=== PATIENT | male | born 1975 | race Caucasian/White ===

== ENCOUNTER → 2016-10-29 | Outpatient (CLI) | payer OTHER ==
[2016-10-29 17:01] LABS: Anion Gap 9 mmol/L; Blood Urea Nitrogen 23 mg/dL (9-20); Carbon Dioxide 30 mmol/L (22-30); Chloride 103 mmol/L (98-107); Non-African American GFR(MDRD) >60 (>60 ml/min/1.73 sqM); Sodium 142 mmol/L (137-145)
--- NOTE | 2016-10-29 20:15 | CT ---
EXAMINATION TYPE: CT angio chest DATE OF EXAM: 10/29/2016 8:01 PM COMPARISON: NONE HISTORY: ENLARGED AORTA AND HX OF AORTIC VALVE REPLACEMENT IN '09. CT DLP: 896.5 mGycm Automated exposure control for dose reduction was used. CONTRAST: CTA scan of the thorax is performed with IV Contrast, patient injected with 100 mL of Omnipaque 350, pulmonary embolism protocol. . FINDINGS: There are 3-D post processed images. The lungs are clear of infiltrate. There is no pleural effusion. There is no sign of a pulmonary mass . There is small linear density at the lung bases consistent with subsegmental atelectasis. There is no pericardial effusion. Heart size is normal. Thoracic aorta has normal size and contour. There is n o sign of aneurysm or dissection. I see no filling defects in the pulmonary arteries. The thoracic ao rta measures maximum 2.8 cm in diameter. I see no bony destructive process. There is no mediastinal adenopathy. There are no hilar masses. IMPRESSION: NEGATIVE CT ANGIOGRAM OF THE CHEST. NO EVIDENCE OF AORTIC ANEURYSM OR DISSECTION. NO EVIDENCE OF PULM ONARY EMBOLISM.
== END ==
LOC: RADCTMAIN 16:29
PROVIDERS: ATTEND Internal Medicine Cardiovascular Disease
DX: I35.1 Nonrheumatic aortic (valve) insufficiency (principal)
CPT/HCPCS: 80051; 82565; 84520; 71275; 36415; Q9967

== ENCOUNTER 2017-02-26 21:53 | Emergency (ER) | payer OTHER ==
[2017-02-26 22:08] VITALS: RESP 16
[2017-02-26] MEDS ORDERED: SODIUM CHLORIDE 0.9% 1,000 ML IV STA (22:12)
[2017-02-26] MEDS ORDERED: KETOROLAC 30 MG/ML 1 ML VIAL IVP STA (22:12)
[2017-02-26 22:45] LABS: Basophils # (A) 0.1 k/uL (0-0.2); Basophils % (A) 1 %; CH 29.2; CHCM 35.2; Eosinophils # (A) 0.2 k/uL (0-0.7); Eosinophils % (A) 3 %; HCT 45.4 % (39.0-53.0); HDW 2.81; HGB 15.6 gm/dL (13.0-17.5); Luc # (Auto) 0.07; Luc % (Auto) 1; Lymphocytes # (A) 2.2 k/uL (1.0-4.8); Lymphocytes % (A) 26 %; MCH 28.7 pg (25.0-35.0); MCHC 34.4 g/dL (31.0-37.0); MCV 83.3 fL (80.0-100.0); Mean Platelet Volume 7.2; Monocytes # (A) 0.3 k/uL (0-1.0); Monocytes % (A) 4 %; Neutrophils # (A) 5.4 k/uL (1.3-7.7); Neutrophils % (A) 66 %; RBC 5.45 m/uL (4.30-5.90); RDW 13.8 % (11.5-15.5); WBC 8.2 k/uL (3.8-10.6); WBC (Perox) 7.56
[2017-02-26 22:55] LABS: Partial Thromboplastin Time 26.1 sec (22.0-30.0); Prothrombin Time 10.2 sec (9.0-12.0)
[2017-02-26 23:05] LABS: ALT 44 U/L (21-72); AST 30 U/L (17-59); Alkaline Phosphatase 93 U/L (38-126); Anion Gap 8 mmol/L; Blood Urea Nitrogen 19 mg/dL (9-20); Calcium 9.1 mg/dL (8.4-10.2); Carbon Dioxide 24 mmol/L (22-30); Chloride 107 mmol/L (98-107); Glucose 88 mg/dL (74-99); Magnesium 2.2 mg/dL (1.6-2.3); Non-African American GFR(MDRD) >60 (>60 ml/min/1.73 sqM); Potassium 3.9 mmol/L (3.5-5.1); Sodium 139 mmol/L (137-145); Total Bilirubin 0.5 mg/dL (0.2-1.3); Total Protein 7.3 g/dL (6.3-8.2)
[2017-02-26 23:07] LABS: Creatine Kinase 90 U/L (55-170)
[2017-02-26 23:21] LABS: Creatine Kinase MB 0.5 ng/mL (0.0-2.4); Troponin I <0.012 ng/mL (0.000-0.034)
--- NOTE | 2017-02-26 23:24 | XR ---
EXAM: XR Right Forearm, 2 Views CLINICAL HISTORY: Reason: Pain TECHNIQUE: Frontal and lateral views of the right forearm. COMPARISON: None. FINDINGS: Bones/joints: Patient is status post ORIF of the mid/distal right ulnar and radial diaphysis. No acute fracture. No dislocation. Degenerative changes involving the olecranon are seen. Soft tissues: Subtle soft tissue swelling may be present overlying these findings. IMPRESSION: Noted radiographic evidence of an acute fracture. Patient is status post ORIF of the radial and ulnar bones, as discussed above.
--- NOTE | 2017-02-26 23:27 | XR ---
EXAM: XR Chest, 2 Views CLINICAL HISTORY: Reason: Chest Pain TECHNIQUE: Frontal and lateral views of the chest. COMPARISON: 12/16/2014 FINDINGS: Lungs: There is suspected mild hazy prominence of the central pulmonary vasculature, not appreciated on the prior study, which may represent mild pulmonary edema. No evidence of consolidation. Pleural space: Unremarkable. No pneumothorax. Heart: Unremarkable. No cardiomegaly. Valvular prosthesis is in place and unchanged from prior study. Mediastinum: Stable. Bones/joints: Previous midline sternotomy is again seen. IMPRESSION: Mild hazy prominence of the central pulmonary vasculature is suspected, not appreciated on the prior study, which may represent mild pulmonary edema.
--- NOTE | 2017-02-26 23:31 | XR ---
EXAM: XR Left Shoulder Complete, 2 or More Views CLINICAL HISTORY: Left shoulder pain 5 days TECHNIQUE: Two or more views of the left shoulder. COMPARISON: None FINDINGS: Bones/joints: Mild narrowing of the glenohumeral and acromioclavicular joints with associated bony productive changes No acute fracture. No dislocation. Soft tissues: Unremarkable. IMPRESSION: Mild osteoarthropathy. No radiographic evidence of acute osseous injury.
--- NOTE | 2017-02-26 23:54 | ED ---
General Adult HPI - General Chief complaint: Extremity Injury, Upper Stated complaint: arm pain Time Seen by Provider: 02/26/17 22:04 Source: patient, RN notes reviewed, old records reviewed Mode of arrival: ambulatory Limitations: no limitations - History of Present Illness Initial comments: 41-year-old male presents emergency Department chief complaint of just feeling generally ill for the past week. Patient reports he is still more fatigued. Patient reports he is has a history of a heart valve replacement. He does state that he is also take Coumadin but he has been subtherapeutic and often forgets to take it. Patient reports that he also has had some right shoulder and left forearm pain. Patient reports is working on the [employer] frequently and thinks that he may have just aggravated the muscles. Patient denies any recent fever or chills, chest pain, shortness of breath, headache, neck pain or any other symptoms. - Related Data Home Medications Medication Instructions Recorded Confirmed Warfarin [Coumadin] 5 mg PO DAILY 02/26/17 02/26/17 Previous Rx's Medication Instructions Recorded Enoxaparin [Lovenox] 100 mg SQ Q12H #10 syr 02/27/17 Allergies Allergy/AdvReac Type Severity Reaction Status Date / Time No Known Allergies Allergy Verified 02/26/17 22:24 Review of Systems ROS Statement: Those systems with pertinent positive or pertinent negative responses have been documented in the HPI. ROS Other: All systems not noted in ROS Statement are negative. Past Medical History Past Medical History: No Reported History History of Any Multi-Drug Resistant Organisms: None Reported Past Surgical History: Appendectomy Additional Past Surgical History / Comment(s): Mechanical aortic valve. Past Psychological History: No Psychological Hx Reported Smoking Status: Never smoker Past Alcohol Use History: None Reported Past Drug Use History: None Reported General Exam - General Exam Comments Initial Comments: 41-year-old male. No acute distress. Limitations: no limitations General appearance: alert, in no apparent distress Head exam: Present: atraumatic, normocephalic, normal inspection Eye exam: Present: normal appearance, PERRL, EOMI. Absent: scleral icterus, conjunctival injection, periorbital swelling ENT exam: Present: normal exam, mucous membranes moist Neck exam: Present: normal inspection. Absent: tenderness, meningismus, lymphadenopathy Respiratory exam: Present: normal lung sounds bilaterally. Absent: respiratory distress, wheezes, rales, rhonchi, stridor Cardiovascular Exam: Present: regular rate, normal rhythm, normal heart sounds. Absent: systolic murmur, diastolic murmur, rubs, gallop, clicks GI/Abdominal exam: Present: soft, normal bowel sounds. Absent: distended, tenderness, guarding, rebound, rigid Extremities exam: Present: normal inspection, full ROM, normal capillary refill. Absent: tenderness, pedal edema, joint swelling, calf tenderness Back exam: Present: normal inspection Neurological exam: Present: alert, oriented X3, CN II-XII intact Psychiatric exam: Present: normal affect, normal mood Skin exam: Present: warm, dry, intact, normal color. Absent: rash Course Vital Signs 02/26/17 22:04 Temperature 98.4 F Pulse Rate 85 Respiratory 16 Rate Blood Pressure 142/60 O2 Sat by Pulse 95 Oximetry Medical Decision Making - Medical Decision Making Patient's lab work was reviewed and does have evidence of subtherapeutic INR. Patient's INR is 1.0. He should clinically be between 2 and 3. Discussed the importance of him returning to his Coumadin doses. Patient denies follow-up tomorrow with his primary care provider as well. Patient does have some previous scarring over raised tender. He could have just some general muscle aches. Over fatiguing himself. Patient blood work was reviewed and negative for any other abnormalities. Chest x-rays and x-rays are related to. - Lab Data Result diagrams: 02/26/17 22:35 02/26/17 22:35 Lab Results 02/26/17 02/26/17 02/26/17 Range/Units 22:35 22:35 22:35 WBC 8.2 (3.8-10.6) k/uL RBC 5.45 (4.30-5.90) m/uL Hgb 15.6 (13.0-17.5) gm/dL Hct 45.4 (39.0-53.0) % MCV 83.3 (80.0-100.0) fL MCH 28.7 (25.0-35.0) pg MCHC 34.4 (31.0-37.0) g/dL RDW 13.8 (11.5-15.5) % Plt Count 214 (150-450) k/uL Neutrophils % 66 % Lymphocytes % 26 % Monocytes % 4 % Eosinophils % 3 % Basophils % 1 % Neutrophils # 5.4 (1.3-7.7) k/uL Lymphocytes # 2.2 (1.0-4.8) k/uL Monocytes # 0.3 (0-1.0) k/uL Eosinophils # 0.2 (0-0.7) k/uL Basophils # 0.1 (0-0.2) k/uL PT (9.0-12.0) sec INR (<1.2) APTT (22.0-30.0) sec Sodium 139 (137-145) mmol/L Potassium 3.9 (3.5-5.1) mmol/L Chloride 107 (98-107) mmol/L Carbon Dioxide 24 (22-30) mmol/L Anion Gap 8 mmol/L BUN 19 (9-20) mg/dL Creatinine 1.07 (0.66-1.25) mg/dL Est GFR (MDRD) Af Amer >60 (>60 ml/min/1.73 sqM) Est GFR (MDRD) Non-Af >60 (>60 ml/min/1.73 sqM) Glucose 88 (74-99) mg/dL Calcium 9.1 (8.4-10.2) mg/dL Magnesium 2.2 (1.6-2.3) mg/dL Total Bilirubin 0.5 (0.2-1.3) mg/dL AST 30 (17-59) U/L ALT 44 (21-72) U/L Alkaline Phosphatase 93 (38-126) U/L Total Creatine Kinase 90 (55-170) U/L CK-MB (CK-2) 0.5 (0.0-2.4) ng/mL CK-MB (CK-2) Rel Index 0.6 Troponin I <0.012 (0.000-0.034) ng/mL Total Protein 7.3 (6.3-8.2) g/dL Albumin 4.5 (3.5-5.0) g/dL 02/26/17 Range/Units 22:35 WBC (3.8-10.6) k/uL RBC (4.30-5.90) m/uL Hgb (13.0-17.5) gm/dL Hct (39.0-53.0) % MCV (80.0-100.0) fL MCH (25.0-35.0) pg MCHC (31.0-37.0) g/dL RDW (11.5-15.5) % Plt Count (150-450) k/uL Neutrophils % % Lymphocytes % % Monocytes % % Eosinophils % % Basophils % % Neutrophils # (1.3-7.7) k/uL Lymphocytes # (1.0-4.8) k/uL Monocytes # (0-1.0) k/uL Eosinophils # (0-0.7) k/uL Basophils # (0-0.2) k/uL PT 10.2 (9.0-12.0) sec INR 1.0 (<1.2) APTT 26.1 (22.0-30.0) sec Sodium (137-145) mmol/L Potassium (3.5-5.1) mmol/L Chloride (98-107) mmol/L Carbon Dioxide (22-30) mmol/L Anion Gap mmol/L BUN (9-20) mg/dL Creatinine (0.66-1.25) mg/dL Est GFR (MDRD) Af Amer (>60 ml/min/1.73 sqM) Est GFR (MDRD) Non-Af (>60 ml/min/1.73 sqM) Glucose (74-99) mg/dL Calcium (8.4-10.2) mg/dL Magnesium (1.6-2.3) mg/dL Total Bilirubin (0.2-1.3) mg/dL AST (17-59) U/L ALT (21-72) U/L Alkaline Phosphatase (38-126) U/L Total Creatine Kinase (55-170) U/L CK-MB (CK-2) (0.0-2.4) ng/mL CK-MB (CK-2) Rel Index Troponin I (0.000-0.034) ng/mL Total Protein (6.3-8.2) g/dL Albumin (3.5-5.0) g/dL - Radiology Data Radiology results: report reviewed Mild hazy appearance of the central pulmonary vascular suspected. Not appreciated and primary site. May represent mild pulmonary edema. Left forearm shows no evidence of any acute fracture. Status post ORIF of read on her bones. Mild osteoarthropathy. No radiographic evidence of any acute osseous injury. Disposition Clinical Impression: Supratherapeutic INR, Right shoulder strain, Fatigue Disposition: HOME SELF-CARE Condition: Good Additional Instructions: Patient advised to follow up with your primary care provider within the next week. Patient advised to take the Lovenox as directed as well as restart her Coumadin. Patient needs to follow-up for INR recheck on Saturday with her primary care provider.. Return to the emergency department if any alarming signs or symptoms occur. Prescriptions: Enoxaparin [Lovenox] 100 mg SQ Q12H #10 syr Referrals: Eduardo Devlin DO [Primary Care Provider] - 1-2 days Time of Disposition: 00:38
[2017-02-27] MEDS ORDERED: ENOXAPARIN 100 MG/ML SYRINGE SQ STA (00:19)
[2017-02-27] MEDS ORDERED: WARFARIN 5 MG TAB PO STA (00:30)
[2017-02-27 00:58] VITALS: BP 113/64; PULSE 69; TEMP 98.3
== END 2017-02-27 00:58 | disposition home or self-care (01) ==
LOC: EC 21:53
DX: S46.911A Strain of unspecified muscle, fascia and tendon at shoulder and upper arm level, right arm, initial encounter (principal); R79.1 Abnormal coagulation profile; R53.83 Other fatigue; M19.012 Primary osteoarthritis, left shoulder; M79.632 Pain in left forearm; Z79.01 Long term (current) use of anticoagulants; Z95.2 Presence of prosthetic heart valve; Z98.890 Other specified postprocedural states; X58.XXXA Exposure to other specified factors, initial encounter
CPT/HCPCS: 36415; 93005; 80053; 82550; 82553; 83735; 84484; 85025; 85610; 85730; 71020; 73030; 73090; 99284; 96374; 96361 ×3; 96372; J1650; J1885

== ENCOUNTER 2020-12-08 22:57 | Emergency (ER) | payer BC, OTHER ==
[2020-12-08 23:12] LABS: Glucose,Whole Blood 177 mg/dL (75-99)
--- NOTE | 2020-12-08 23:19 | ED ---
Neuro HPI - General Chief Complaint: Neuro Symptoms/Deficit Stated Complaint: Stroke-like symptoms Time Seen by Provider: 12/08/20 23:01 Source: EMS Mode of arrival: EMS Limitations: no limitations - History of Present Illness Is the patient presenting with stroke symptoms?: Yes Last Known Well Date: 12/08/20 Last Known Well Time: 22:15 Onset/Timin -: minutes(s) Initial Comments: This patient is 45-year-old man who presents with left sided weakness that came on tonight while he was getting ready for work a little after 10 PM. Patient relates she has history of mechanical aortic-valve replacement. He had been taking Coumadin until 3 weeks ago when he stopped that because of covid infection. Location: speech, left arm, left leg History of same: No Place: home Severity: severe Quality: weak Improves With: none Worsens With: none On Anticoagulants: No (Had stopped his Coumadin three weeks ago) Context: sudden onset Associated Symptoms: denies other symptoms Treatments Prior to Arrival: none - Related Data Home Medications: Home Medications Medication Instructions Recorded Confirmed Warfarin [Coumadin] 5 mg PO DAILY 02/26/17 02/26/17 Previous Rx's Medication Instructions Recorded Enoxaparin [Lovenox] 100 mg SQ Q12H #10 syr 02/27/17 Allergies/Adverse Reactions: Allergies Allergy/AdvReac Type Severity Reaction Status Date / Time No Known Allergies Allergy Verified 12/08/20 22:58 Review of Systems ROS Statement: Those systems with pertinent positive or pertinent negative responses have been documented in the HPI. ROS Other: All systems not noted in ROS Statement are negative. Constitutional: Denies: fever Respiratory: Denies: cough, dyspnea Cardiovascular: Denies: chest pain, palpitations, edema Gastrointestinal: Denies: abdominal pain, vomiting, diarrhea, melena, hematochezia Genitourinary: Denies: dysuria, hematuria Musculoskeletal: Denies: back pain Skin: Denies: rash Neurological: Reports: weakness. Denies: headache Hematological/Lymphatic: Reports: other (Stopped Coumadin) General Exam Limitations: no limitations General appearance: alert Head exam: Present: atraumatic, normocephalic Eye exam: Present: normal appearance, PERRL, EOMI. Absent: scleral icterus, conjunctival injection ENT exam: Present: mucous membranes moist, other (Moderate dental caries) Neck exam: Present: normal inspection, full ROM Respiratory exam: Present: normal lung sounds bilaterally. Absent: respiratory distress, wheezes, rales, rhonchi, stridor, accessory muscle use Cardiovascular Exam: Present: normal rhythm, tachycardia (Rate approximately 104 exam), clicks. Absent: diastolic murmur, rubs, gallop GI/Abdominal exam: Present: soft. Absent: distended, tenderness, guarding, rebound, rigid, mass Extremities exam: Present: normal inspection, normal capillary refill. Absent: pedal edema, calf tenderness Back exam: Present: normal inspection. Absent: CVA tenderness (R), CVA tenderness (L) Neurological exam: Present: alert, oriented X3, CN II-XII intact, motor sensory deficit Expanded Neurological exam: Absent: inattentive, receptive aphasia Cranial nerves: EOM's Intact: Normal, Gag Reflex: Normal, Tongue Deviation: Normal, Facial Sensation: Normal Motor strength exam: RUE: 5, LUE: 0, RLE: 5, LLE: 0 Eye Response: (4) open spontaneously Motor Response: (6) obeys commands Verbal Response: (5) oriented [place] Total: 15 Psychiatric exam: Present: normal affect Skin exam: Present: warm, dry, intact, normal color. Absent: rash Stroke MDM - Lab Data Result diagrams: 12/08/20 23:13 12/08/20 23:13 Lab Results 12/08/20 12/08/20 12/08/20 Range/Units 23:00 23:13 23:13 WBC 6.8 (3.8-10.6) k/uL RBC 5.23 (4.30-5.90) m/uL Hgb 15.2 (13.0-17.5) gm/dL Hct 43.2 (39.0-53.0) % MCV 82.6 (80.0-100.0) fL MCH 29.1 (25.0-35.0) pg MCHC 35.3 (31.0-37.0) g/dL RDW 14.2 (11.5-15.5) % Plt Count 145 L (150-450) k/uL MPV 7.5 Neutrophils % 63 % Lymphocytes % 26 % Monocytes % 6 % Eosinophils % 3 % Basophils % 1 % Neutrophils # 4.3 (1.3-7.7) k/uL Lymphocytes # 1.8 (1.0-4.8) k/uL Monocytes # 0.4 (0-1.0) k/uL Eosinophils # 0.2 (0-0.7) k/uL Basophils # 0.1 (0-0.2) k/uL PT 9.6 (9.0-12.0) sec INR 0.9 (<1.2) APTT 24.1 (22.0-30.0) sec Sodium (137-145) mmol/L Potassium (3.5-5.1) mmol/L Chloride (98-107) mmol/L Carbon Dioxide (22-30) mmol/L Anion Gap mmol/L BUN (9-20) mg/dL Creatinine (0.66-1.25) mg/dL Est GFR (CKD-EPI)AfAm (>60 ml/min/1.73 sqM) Est GFR (CKD-EPI)NonAf (>60 ml/min/1.73 sqM) Glucose (74-99) mg/dL POC Glucose (mg/dL) 177 H (75-99) mg/dL POC Glu Book Jogger ID Marisol, Kerry Calcium (8.4-10.2) mg/dL Magnesium (1.6-2.3) mg/dL Total Bilirubin (0.2-1.3) mg/dL AST (17-59) U/L ALT (4-49) U/L Alkaline Phosphatase (38-126) U/L Troponin I (0.000-0.034) ng/mL Total Protein (6.3-8.2) g/dL Albumin (3.5-5.0) g/dL 12/08/20 12/08/20 Range/Units 23:13 23:13 WBC (3.8-10.6) k/uL RBC (4.30-5.90) m/uL Hgb (13.0-17.5) gm/dL Hct (39.0-53.0) % MCV (80.0-100.0) fL MCH (25.0-35.0) pg MCHC (31.0-37.0) g/dL RDW (11.5-15.5) % Plt Count (150-450) k/uL MPV Neutrophils % % Lymphocytes % % Monocytes % % Eosinophils % % Basophils % % Neutrophils # (1.3-7.7) k/uL Lymphocytes # (1.0-4.8) k/uL Monocytes # (0-1.0) k/uL Eosinophils # (0-0.7) k/uL Basophils # (0-0.2) k/uL PT (9.0-12.0) sec INR (<1.2) APTT (22.0-30.0) sec Sodium 139 (137-145) mmol/L Potassium 3.8 (3.5-5.1) mmol/L Chloride 107 (98-107) mmol/L Carbon Dioxide 24 (22-30) mmol/L Anion Gap 8 mmol/L BUN 17 (9-20) mg/dL Creatinine 0.89 (0.66-1.25) mg/dL Est GFR (CKD-EPI)AfAm >90 (>60 ml/min/1.73 sqM) Est GFR (CKD-EPI)NonAf >90 (>60 ml/min/1.73 sqM) Glucose 151 H (74-99) mg/dL POC Glucose (mg/dL) (75-99) mg/dL POC Glu Book Jogger ID Calcium 9.3 (8.4-10.2) mg/dL Magnesium 2.3 (1.6-2.3) mg/dL Total Bilirubin 0.8 (0.2-1.3) mg/dL AST 52 (17-59) U/L ALT 40 (4-49) U/L Alkaline Phosphatase 148 H (38-126) U/L Troponin I 1.990 H* (0.000-0.034) ng/mL Total Protein 7.3 (6.3-8.2) g/dL Albumin 4.4 (3.5-5.0) g/dL - Medical Decision Making Patient's 45-year-old man with what appears to be acute ischemic stroke affecting the right MCA. Case was discussed with stroke team. CTs were reviewed. I discussed risks, benefits, indications of TPA with patient and and they do elect to proceed. TPA administered and case discussed with stroke team and they will accept patient for transfer to [facility]. - EKG Data -: EKG Interpreted by Me EKG shows normal: sinus rhythm, axis (Normal), intervals (Normal), QRS complexes (Possible old inferior infarct.), ST-T waves (Normal) Rate: tachycardia Past Medical History Past Medical History: No Reported History History of Any Multi-Drug Resistant Organisms: None Reported Past Surgical History: Appendectomy Additional Past Surgical History / Comment(s): Mechanical aortic valve. Past Psychological History: No Psychological Hx Reported Smoking Status: Former smoker Past Alcohol Use History: None Reported Past Drug Use History: None Reported Course Vital Signs 12/08/20 12/08/20 12/08/20 23:01 23:15 23:30 Temperature 98.0 F 98.0 F 98.0 F Pulse Rate 108 H 104 H 110 H Respiratory 20 20 18 Rate Blood Pressure 165/97 157/83 156/98 O2 Sat by Pulse 98 97 98 Oximetry 12/08/20 12/09/20 12/09/20 23:45 00:00 00:15 Temperature 98.0 F 98.0 F 98.6 F Pulse Rate 98 99 104 H Respiratory 18 18 18 Rate Blood Pressure 151/103 152/105 157/92 O2 Sat by Pulse 98 97 98 Oximetry 12/09/20 00:30 Temperature 98.3 F Pulse Rate 97 Respiratory 20 Rate Blood Pressure 128/65 O2 Sat by Pulse 96 Oximetry - Reevaluation(s) Reevaluation #1: 12/09/20 00:44 While awaiting transfer, the patient did develop some gingival leading adjacent to tooth #6 and 7. Disposition Clinical Impression: Cerebrovascular accident (CVA) Disposition: OTHER INSTITUTION NOT DEFINED Condition: Serious Is patient prescribed a controlled substance at d/c from ED?: No Referrals: Rakan Harkins MD [Primary Care Provider] - 1-2 days - Out of Hospital Transfer - Req. Specs Out of Hospital Transfer - Requested Specifics: Neurological ICU
[2020-12-08 23:27] LABS: Basophils # (A) 0.1 k/uL (0-0.2); Basophils % (A) 1 %; Eosinophils # (A) 0.2 k/uL (0-0.7); Eosinophils % (A) 3 %; HCT 43.2 % (39.0-53.0); HGB 15.2 gm/dL (13.0-17.5); Lymphocytes # (A) 1.8 k/uL (1.0-4.8); Lymphocytes % (A) 26 %; MCH 29.1 pg (25.0-35.0); MCHC 35.3 g/dL (31.0-37.0); MCV 82.6 fL (80.0-100.0); Mean Platelet Volume 7.5; Monocytes # (A) 0.4 k/uL (0-1.0); Monocytes % (A) 6 %; Neutrophils # (A) 4.3 k/uL (1.3-7.7); Neutrophils % (A) 63 %; Platelet Count 145 k/uL (150-450); RBC 5.23 m/uL (4.30-5.90); RDW 14.2 % (11.5-15.5); WBC 6.8 k/uL (3.8-10.6)
--- NOTE | 2020-12-08 23:28 | XR ---
EXAMINATION TYPE: XR chest 1V DATE OF EXAM: 12/08/2020 COMPARISON: 02/26/2017 HISTORY: Single view TECHNIQUE: FINDINGS: There is no heart failure nor confluent pneumonic infiltrate. Costophrenic angles are clear . There are no hilar masses. Bony thorax is intact. There are sternal wires. IMPRESSION: No active cardiopulmonary disease. No change.
[2020-12-08] MEDS ORDERED: SODIUM CHLORIDE 0.9% 1,000 ML IV STA (23:29)
[2020-12-08] MEDS ORDERED: SODIUM CHLORIDE 0.9% 500 ML 500 ML IV STA (23:29)
[2020-12-08] MEDS ORDERED: Alteplase PER PHARMACY Stroke 1 EACH MISC MISCELLANE PRN (23:33)
--- NOTE | 2020-12-08 23:34 | CT ---
EXAMINATION TYPE: CT brain wo con for TPA DATE OF EXAM: 12/08/2020 COMPARISON: None HISTORY: Neuro deficit, acute, stroke suspected CT DLP: 1116 mGycm Automated exposure control for dose reduction was used. The ventricles and sulci appear normal. There is no mass effect nor midline shift. There is no sign o f intracranial hemorrhage. Calvarium is intact. There is no evidence of cerebral edema. IMPRESSION: Negative unenhanced head CT scan.
[2020-12-08] MEDS ORDERED: ALTEPLASE BOLUS 9 MG in EMPTY SYRINGE 1 SYR IV STA (23:36)
[2020-12-08 23:37] LABS: INR 0.9 (<1.2); Partial Thromboplastin Time 24.1 sec (22.0-30.0); Prothrombin Time 9.6 sec (9.0-12.0)
[2020-12-08] MEDS ORDERED: ALTEPLASE 81 MG in EMPTY BAG 1 BAG IV STA (23:37)
--- NOTE | 2020-12-08 23:45 | CT ---
EXAMINATION TYPE: CT angio head neck DATE OF EXAM: 12/08/2020 COMPARISON: None HISTORY: Neuro deficit, acute, stroke suspected CT DLP: 549.9 mGycm Automated exposure control for dose reduction was used. CONTRAST: Performed with IV Contrast, patient injected with 65 mL of Isovue 370. Images obtained from the aortic arch to the vertex of the brain with IV contrast. There are 3-D post processed images. There is normal branching pattern of the great vessels on the aortic arch. There is bilateral arteria l flow in the subclavian arteries. There is arterial flow in the common internal and external carotid arteries bilaterally. There is wide patency of the carotid artery bifurcations. There is arterial fl ow in both vertebral arteries. There is arterial flow in the vertebrobasilar artery system. There is no evidence of carotid or vertebral artery aneurysm or dissection. There is arterial flow in the anterior middle and posterior cerebral arteries. There is no mass effec t. There is no evidence of intracranial aneurysm or neovascularity. There is normal enhancement of th e venous sinuses. There is almost complete occlusion of the A1 segment of the left anterior cerebral artery. The left anterior cerebral artery appears to fill mostly through the anterior communicating a rtery from the right side. There is a large A1 segment of the right anterior cerebral artery. There is significant narrowing of the right middle cerebral artery at the anterior right sylvian fiss ure. 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 This is seen proximal to the middle cerebral alek ry bifurcation. 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 No evidence of any angiographic abnormality of the carotid and vertebral arteries of the neck.
[2020-12-08 23:50] LABS: ALT 40 U/L (4-49); AST 52 U/L (17-59); African American GFR (CKD) >90 (>60 ml/min/1.73 sqM); Albumin 4.4 g/dL (3.5-5.0); Alkaline Phosphatase 148 U/L (38-126); Anion Gap 8 mmol/L; Blood Urea Nitrogen 17 mg/dL (9-20); Calcium 9.3 mg/dL (8.4-10.2); Carbon Dioxide 24 mmol/L (22-30); Chloride 107 mmol/L (98-107); Glucose 151 mg/dL (74-99); Magnesium 2.3 mg/dL (1.6-2.3); Non-African American GFR(CKD) >90 (>60 ml/min/1.73 sqM); Potassium 3.8 mmol/L (3.5-5.1); Sodium 139 mmol/L (137-145); Total Bilirubin 0.8 mg/dL (0.2-1.3); Total Protein 7.3 g/dL (6.3-8.2)
[2020-12-09] MEDS ORDERED: SODIUM CHLORIDE 0.9% 50 ML MINI-BAG IV ONE (00:36)
[2020-12-09 00:49] VITALS: PULSE 102
[2020-12-09 01:23] VITALS: BP 131/92; RESP 16; TEMP 97.9
== END 2020-12-09 01:23 | disposition other institution (70) ==
LOC: EC 22:57
DX: I63.9 Cerebral infarction, unspecified (principal); Z87.891 Personal history of nicotine dependence
CPT/HCPCS: 36415; 93005; 80053; 83735; 84484; 85025; 85610; 85730; 71045; 70496; 70450; 70498; 99285; 37195; J2997; Q9967

== ENCOUNTER → 2021-04-19 | Outpatient (CLI) | payer BC ==
--- NOTE | 2021-04-19 16:41 | CONS ---
CONSULTATION DATE OF SERVICE: 04/19/2021 This 45-year-old gentleman has been evaluated in [facility] for possible obstructive sleep apnea-hypopnea syndrome. HISTORY OF PRESENT ILLNESS/SLEEP-WAKE EVALUATION: Patient's usual sleep schedule on weekdays is from 8:30 a.m. until 1 or 2 p.m. 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 On weekends it is from 10 p.m. to 6 or 7:30 a.m. Sometimes it takes more than 30 minutes for him to fall asleep. He has a TV set in the bedroom. He usually sleeps on the side position. He does snore and has a history of witnessed episodes of stopped breathing during sleep. He wakes up from sleep up to 3 times per night with one episode of nocturia. During the day, the patient feels sleepiness. [place] Sleepiness Scale is significantly increased to 13. He drinks 4 caffeinated beverages during the day. For last 5 years, his weight has increased by about 50 pounds. No history of hypnagogic hallucinations, sleep paralysis or cataplexy. PAST MEDICAL HISTORY: Positive for hypertension, stroke in November 2020, COVID-19 in the beginning of November 2020 before stroke, hyperlipidemia, restless leg symptoms. PAST SURGICAL HISTORY: He is status post open heart surgery with aortic valve replacement with a mechanical valve in 2008. MEDICATIONS: 1. Coumadin 5 mg once a day. 2. Atorvastatin 80 mg once a day. 3. Metoprolol 25 mg once a day. SOCIAL HISTORY: Positive for smoking about half pack a day for 15 years, quit in 1999. Alcohol consumption very rarely. REVIEW OF SYSTEMS: No fevers. No double vision. No recent chest pain. No shortness of breath. No abdominal pain. No bleeding episodes. No blood in the urine. No seizure episodes. Multiple awakenings from sleep. FAMILY HISTORY: Snoring, cancer, diabetes. PHYSICAL EXAMINATION: GENERAL: Pleasant gentleman without distress. VITAL SIGNS: BP 149/88, HR 78, RR 15, height 5 feet 10 inches, weight 223, body mass index 31.5, temperature 97.7, oxygen saturation at room air 97%. HEENT: PERRLA, EOMI, evaluation of oropharynx showed tongue protrudes midline. Extremely low position of soft palate; Mallampati IV. NECK: Supple, no JVD. Thyroid is not palpable. Neck is wide at 17 inches in circumference. LUNGS: Clear to percussion and to auscultation. Good air exchange. No wheezing or rhonchi. HEART: S1, S2 regular. No murmurs, gallops, or rubs. Sounds of mechanical valve. ABDOMEN: Soft and nontender. Bowel sounds are present. No organomegaly appreciated. EXTREMITIES: No clubbing or cyanosis. EVENTS DIRECTOR: Awake, alert, and oriented X3. Cranial nerves 2 to 7 intact. There is no fasciculation or atrophy. noted. No focal deficits observed. IMPRESSION: 1. Snoring, awakenings from sleep with nocturia, extremely low position of soft palate, Mallampati IV, wide neck at 17 inches in circumference; obstructive sleep apnea-hypopnea syndrome. 2. Status post aortic valve replacement with mechanical valve in 2008. 3. Status post COVID-19 at the beginning of November 2020. 4. Status post stroke at the end of November 2020. 5. Hypertension. 6. Mild obesity; body mass index 31.5. 7. Hyperlipidemia. 8. 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 PLAN: 1. Polysomnography for evaluation of patient's breathing during sleep. Also to check for any possible leg movements. The patient has history of restless leg symptoms. 2. CPAP/BiPAP titration if sleep study confirms obstructive sleep apnea-hypopnea syndrome. 3. Preferable position during sleep on the side. 4. No driving if patient feels any sleepiness. 5. I will see patient for follow up visit to explain results of testing and following plan. Thank you very much for referring this patient for consultation. Sincerely, Nikhil Cameron MD, PhD, FAASM Diplomat of [place] [employer] Sleep Medicine Board of [place] [employer] [facility] of [facility] [place] MMODL / IJN: [id number] /
== END ==
LOC: SLEEP 11:35
PROVIDERS: ATTEND Internal Medicine
DX: G47.33 Obstructive sleep apnea (adult) (pediatric) (principal); I10 Essential (primary) hypertension; E78.5 Hyperlipidemia, unspecified; E66.9 Obesity, unspecified; Z68.31 Body mass index [BMI] 31.0-31.9, adult; Z86.16 Personal history of COVID-19; Z86.73 Personal history of transient ischemic attack (TIA), and cerebral infarction without residual deficits; Z87.891 Personal history of nicotine dependence; Z79.01 Long term (current) use of anticoagulants; Z95.2 Presence of prosthetic heart valve; Z79.899 Other long term (current) drug therapy
CPT/HCPCS: 99211

== ENCOUNTER → 2021-06-05 | Outpatient (CLI) | payer BC ==
--- NOTE | 2021-06-08 22:53 | SLS ---
SLEEP STUDY POLYSOMNOGRAPHY REPORT: DATE OF PROCEDURE: 06/05/2021 CLINICAL: Polysomnography has been done for evaluation of the patient's breathing during sleep. PROCEDURE: The standard montage for clinical polysomnography included the electroencephalogram, the electroculogram, the mentalis surface electromyography and Lead II cardiography. The respiratory battery consisted of measurements of nasal/buccal air flow, pressure transducer measurements from nose, thoracic, and/or abdominal effort and intercostal surface electromyography. Video monitoring has been done to check for any parasomnia events. Nocturnal oxyhemoglobin saturations were obtained by finger oximetry. RESULTS: During diagnostic sleep study, sleep efficiency significantly decreased to 72%. Latency to sleep onset, though, was short at 2.3 minutes. Sleep architecture showed extremely high stage N1 at 55%, total absence of delta sleep, and REM sleep in very low range, only 8.6%. Respiratory channel showed 25 hypopneas with total apnea-hypopnea index 4.9, in REM sleep 13.6 with lowest oxygen level 84.7. Heart rate was in the range between 61 and 91 with average 71 by computer calculation. Oxygen level never was below 88%. EMG showed 39.1 periodic limb movements per hour with 19.5 microarousals per hour. IMPRESSION: 1. No significant respiratory abnormalities by today's criteria; no significant oxygen desaturation. 2. Significant periodic limb movements have been documented with significant amount of microarousals related to leg movements. 3. Status post status post aortic valve replacement with mechanical valve in 2008. 4. Status post COVID-19 in the beginning of November 2020. 5. Status post stroke at the end of November 2020. 6. Hypertension. 7. Mild obesity. 8. Hyperlipidemia. 9. 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 PLAN: 1. Sleep hygiene with regular time in bed for 7-1/2 to 8 hours. 2. Watching and losing weight. 3. Precautions related to driving. No driving if feeling sleepiness. 4. Preferable position during sleep is on the side and slightly up. 5. Please check iron profile, including ferritin level. Low level of iron may increase risk for periodic limb movements. Patient is on treatment with Coumadin. 6. I will see patient for follow-up visit to explain results of the test and recommendations. Thank you very much for allowing me to participate in the management of your patient. Sincerely, Nikhil Cameron MD, PhD, FAASM Diplomat of [place] [employer] Sleep Medicine Board of [place] [employer] Drug Abuse Worker of [facility] [place] DAVE / RONEY: [id number] /
== END ==
LOC: SLEEP 07:09
PROVIDERS: ATTEND Internal Medicine
DX: G47.33 Obstructive sleep apnea (adult) (pediatric) (principal); R35.1 Nocturia; E66.9 Obesity, unspecified; E78.5 Hyperlipidemia, unspecified; Z95.2 Presence of prosthetic heart valve; Z86.73 Personal history of transient ischemic attack (TIA), and cerebral infarction without residual deficits; Z68.31 Body mass index [BMI] 31.0-31.9, adult; Z86.16 Personal history of COVID-19; Z87.891 Personal history of nicotine dependence; Z79.01 Long term (current) use of anticoagulants; Z79.899 Other long term (current) drug therapy
CPT/HCPCS: 95810

== ENCOUNTER → 2021-08-09 | Outpatient (CLI) | payer BC ==
--- NOTE | 2021-08-09 21:10 | SFUN ---
SLEEP CENTER FOLLOW UP NOTE DATE OF SERVICE: 08/09/2021 This 46-year-old gentleman has been followed in Sleep Center and is here to discuss results of his sleep study and the following plan. I discussed results of sleep study with the patient in detail. Polysomnogram showed apnea-hypopnea index 4.9, but in REM sleep it was increased to 13.6. Oxygen level never went below 88%. EMG showed 39.1 periodic limb movements per hour with 19.5 microarousals per hour. The patient had multiple awakenings from sleep during the sleep study and also he has multiple awakenings from sleep while he sleeps at home. 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 [place] Sleepiness Scale today is 9. MEDICATIONS: Coumadin, atorvastatin, metoprolol. PHYSICAL EXAMINATION: GENERAL: Pleasant patient in no distress. VITAL SIGNS: BP 146/87, HR 95, RR 16, height 5 feet 10 inches, weight 223.4, temperature 97.2, oxygen saturation at room air 97%. BMI 31.9. HEENT: PERRLA, EOMI, evaluation of oropharynx showed tongue protrudes midline. Low position of soft palate. NECK: Supple, no JVD. Thyroid is not palpable. LUNGS: Clear to percussion and to auscultation. Good air exchange. No wheezing or rhonchi. HEART: Sounds of mechanical valve on aorta. ABDOMEN: Soft and nontender. Bowel sounds are present. No organomegaly appreciated. EXTREMITIES: No clubbing or cyanosis. SERVICE COUNSELOR: Awake, alert, and oriented X3. Cranial nerves 2 to 7 intact. There is no fasciculation or atrophy. noted. No focal deficits observed. IMPRESSION: 1. Borderline results of sleep test. Apnea-hypopnea index is 4.9, but in REM sleep 13.6. 2. Significant periodic limb movements have been documented with a significant amount of microarousals. 3. Status post aortic valve replacement with mechanical valve in 2008. 4. Status post COVID-19 in the beginning of November 2020. 5. Status post stroke at the end of November 2020 secondary to clot. 6. Hypertension. 7. Mild obesity. 8. Hyperlipidemia. 9. manufacturing shift supervisor worker. PLAN: 1. Patient will be started on treatment with Mirapex 0.125 mg 1 or 2 tablets at bedtime for periodic limb movements. 2. We will repeat sleep study as a home test to re-evaluate patient's breathing during sleep. 3. Please check iron profile, including ferritin level. Low level of iron may increase risk for periodic limb movements. Patient is on treatment with Coumadin. 4. Precautions related to driving. No driving if feeling sleepiness. 5. Watching and losing weight. Thank you very much for allowing me to participate in the management of your patient. Sincerely, Nikhil Cameron MD, PhD, FAASM Diplomat of [place] [employer] Sleep Medicine Board of [place] [employer] Blood Bank Worker of [facility] [place] MMODL / DELIAN: [id number] /
== END ==
LOC: SLEEP 16:16
PROVIDERS: ATTEND Internal Medicine
DX: G47.8 Other sleep disorders (principal); G47.61 Periodic limb movement disorder; Z86.16 Personal history of COVID-19; Z86.73 Personal history of transient ischemic attack (TIA), and cerebral infarction without residual deficits; I10 Essential (primary) hypertension; E66.9 Obesity, unspecified; E78.5 Hyperlipidemia, unspecified; Z68.31 Body mass index [BMI] 31.0-31.9, adult; Z79.01 Long term (current) use of anticoagulants; Z79.899 Other long term (current) drug therapy

== ENCOUNTER 2021-12-02 14:14 | Emergency (ER) | payer BC ==
[2021-12-02 14:42] VITALS: RESP 16
[2021-12-02] MEDS ORDERED: FLUORESCEIN STRIPS 1 MG STRIP BOTH EYES ONE (16:30)
[2021-12-02] MEDS ORDERED: ERYTHROMYCIN 5 MG/GM OPHTH OINT 3.5 GM TUBE BOTH EYES STA (16:30)
[2021-12-02] MEDS ORDERED: PROPARACAINE 0.5% OPHTH DROPS 15 ML BTL BOTH EYES STA (16:30)
[2021-12-02] MEDS ORDERED: DIPH,PERTUS(ACELL)TETVAC-LF 0.5 ML VIAL IM ONE (17:23)
--- NOTE | 2021-12-02 17:29 | ED ---
Eye Problem HPI - General Chief complaint: Eye Problems Stated complaint: Rust in Eye Time Seen by Provider: 12/02/21 16:30 Source: patient Mode of arrival: ambulatory Limitations: no limitations - History of Present Illness Initial comments: This is a pleasant 46-year-old male who presents and was complaining of foreign body to his left eye. Patient states that he was working at home and believes he got some metal in his eye. Denies any problems with visual acuity. Last tetanus is unknown. Injury occurred at 6 PM last night. Complaining of irritation to the eye. Clear tearing. No headache, no fever or chills, no changes in vision or hearing, no sore throat or difficulty with speech, no neck pain, no chest pain or shortness of breath, no abdominal pain, no nausea or vomiting, no changes in urination or bowel movements, no numbness or tingling, no extremity pain, no skin rashes or lesions. MD chief complaint: foreign body - Related Data Home Medications Medication Instructions Recorded Confirmed Warfarin [Coumadin] 5 mg PO DAILY 02/26/17 02/26/17 Previous Rx's Medication Instructions Recorded Enoxaparin [Lovenox] 100 mg SQ Q12H #10 syr 02/27/17 Allergies Allergy/AdvReac Type Severity Reaction Status Date / Time No Known Allergies Allergy Verified 12/02/21 14:40 Review of Systems ROS Statement: Those systems with pertinent positive or pertinent negative responses have been documented in the HPI. ROS Other: All systems not noted in ROS Statement are negative. Past Medical History Past Medical History: No Reported History History of Any Multi-Drug Resistant Organisms: None Reported Past Surgical History: Appendectomy Additional Past Surgical History / Comment(s): Mechanical aortic valve. Past Psychological History: No Psychological Hx Reported Smoking Status: Former smoker Past Alcohol Use History: None Reported Past Drug Use History: None Reported General Exam Limitations: no limitations General appearance: alert, in no apparent distress Head exam: Present: atraumatic, normocephalic, normal inspection Eye exam: Present: normal appearance, PERRL, EOMI. Absent: scleral icterus, conjunctival injection, periorbital swelling Expanded Eyelids: Normal Inspection: Bilateral Pupils: Regular, Round: Bilateral, Reactive: Bilateral Sclera/Conjunctival: Foreign Body: Left (Small metallic foreign body, anterior chambers clear, no other abnormalities. No evidence of infectious process) ENT exam: Present: normal exam, mucous membranes moist Neck exam: Present: normal inspection. Absent: tenderness, meningismus, lymphadenopathy Respiratory exam: Present: normal lung sounds bilaterally. Absent: respiratory distress, wheezes, rales, rhonchi, stridor Cardiovascular Exam: Present: regular rate, normal rhythm, normal heart sounds. Absent: systolic murmur, diastolic murmur, rubs, gallop, clicks GI/Abdominal exam: Present: soft, normal bowel sounds. Absent: distended, tenderness, guarding, rebound, rigid Extremities exam: Present: normal inspection, full ROM, normal capillary refill. Absent: tenderness, pedal edema, joint swelling, calf tenderness Back exam: Present: normal inspection Neurological exam: Present: alert, oriented X3, CN II-XII intact Psychiatric exam: Present: normal affect, normal mood Skin exam: Present: warm, dry, intact, normal color. Absent: rash Course Vital Signs 12/02/21 14:40 Temperature 97.7 F Pulse Rate 79 Respiratory 16 Rate Blood Pressure 151/82 O2 Sat by Pulse 97 Oximetry Procedures - Procedures Initial comment: Proparacaine was instilled. A tiny metallic foreign body noted to the 7 o'clock position just inferior to the pupil over the cornea. Anterior chamber is clear. A beveled edge of the gauge needle was used to remove the foreign body without difficulty. There was minimal rust ring left. No other abnormalities. Patient tolerated well, slit lamp was used. Medical Decision Making - Medical Decision Making Slit lamp examination with foreign body removal, residual rust ring. Follow-up with ophthalmology. Erythromycin ointment 1 cm every 6 hours, tetanus updated. Patient was told to return to the ER for any signs or symptoms worsen. Told to return immediately if any other problems arise. All questions answered. Treatment plan discussed. Patient in agreement Every effort has been made to ensure accuracy of this dictation. However, due to the limitations of electronic medical records and dictation devices, errors in charting still occur. The case was discussed in detail with ED attending physician. Presentation, findings, treatment plan discussed in detail. Dr. Moreira Disposition Clinical Impression: Corneal rust ring of left eye, Corneal foreign body Narrative: Left corneal foreign body Disposition: HOME SELF-CARE Instructions (If sedation given, give patient instructions): Eye Foreign Body (ED) Additional Instructions: No headache, no fever or chills, no changes in vision or hearing, no sore throat or difficulty with speech, no neck pain, no chest pain or shortness of breath, no abdominal pain, no nausea or vomiting, no changes in urination or bowel movements, no numbness or tingling, no extremity pain, no skin rashes or lesions. Is patient prescribed a controlled substance at d/c from ED?: No Referrals: Galo Reyes MD [STAFF PHYSICIAN] - 12/04/21 Time of Disposition: 17:24
[2021-12-02 18:02] VITALS: BP 150/70; PULSE 72; TEMP 98
== END 2021-12-02 18:01 | disposition home or self-care (01) ==
LOC: EC 14:14
DX: T15.02XA Foreign body in cornea, left eye, initial encounter (principal); Z87.891 Personal history of nicotine dependence; W22.8XXA Striking against or struck by other objects, initial encounter; Y92.009 Unspecified place in unspecified non-institutional (private) residence as the place of occurrence of the external cause
CPT/HCPCS: 65222; 90471; 90715; 99283

== ENCOUNTER 2022-07-08 23:00 | Emergency (ER) | payer BC ==
[2022-07-08 23:05] VITALS: RESP 18
[2022-07-08] MEDS ORDERED: methylPREDNISolone SOD SUCCI 125 MG/2 ML VIAL IV STA (23:25)
[2022-07-08] MEDS ORDERED: ALBUTEROL HFA INHALER INHALATION STA (23:25)
[2022-07-08] MEDS ORDERED: SODIUM CHLORIDE 0.9% 1,000 ML IV STA (23:25)
--- NOTE | 2022-07-08 23:32 | ED ---
URI HPI - General Chief Complaint: Upper Respiratory Infection Stated Complaint: Shortness of Breath, Cough Time Seen by Provider: 07/08/22 23:09 Source: patient, family, RN notes reviewed Mode of arrival: ambulatory Limitations: no limitations - History of Present Illness Initial Comments: 47-year-old male with a history of being a former smoker who does use updrafts and inhalers at home who states for the past several days he's had cough and some congestion and rhinorrhea difficulty breathing when he does cough he can produce a yellow brown phlegm. He had hot and cold flashes but no overt fevers chills or sweats he states. He states he home medications are not helping with her breathing he thought he may have a sinus infection he denies any earaches or sore throat at this time no overt chest pain palpitations or other symptoms. MD Complaint: cough, rhinorrhea, other - Related Data Home Medications Medication Instructions Recorded Confirmed Warfarin [Coumadin] 5 mg PO DAILY 02/26/17 02/26/17 Previous Rx's Medication Instructions Recorded Enoxaparin [Lovenox] 100 mg SQ Q12H #10 syr 02/27/17 Amoxic-Pot Clav 875-125Mg 1 tab PO Q12HR 1 Days #20 tab 07/09/22 [Augmentin 875-125] Budesonide [Pulmicort] 1 mg INHALATION BID #60 ml 07/09/22 methylPREDNISolone Dose Pack 4 mg PO DIRECTED #21 tab 07/09/22 [Medrol Dose Pack] Allergies Allergy/AdvReac Type Severity Reaction Status Date / Time No Known Allergies Allergy Verified 07/08/22 23:02 Review of Systems ROS Statement: Those systems with pertinent positive or pertinent negative responses have been documented in the HPI. ROS Other: All systems not noted in ROS Statement are negative. Past Medical History Past Medical History: No Reported History, Hypertension History of Any Multi-Drug Resistant Organisms: None Reported Past Surgical History: Appendectomy Additional Past Surgical History / Comment(s): Mechanical aortic valve. Past Psychological History: No Psychological Hx Reported Smoking Status: Former smoker Past Alcohol Use History: None Reported Past Drug Use History: None Reported General Exam - General Exam Comments Initial Comments: This is a well-developed well-nourished awake alert oriented 4 male Limitations: no limitations General appearance: alert, anxious Head exam: Present: atraumatic, normocephalic, normal inspection Eye exam: Present: normal appearance, PERRL, EOMI. Absent: scleral icterus, conjunctival injection, periorbital swelling ENT exam: Present: normal exam, mucous membranes moist Neck exam: Present: normal inspection, full ROM, other (Stridor JVD or bruits). Absent: tenderness, meningismus, lymphadenopathy Respiratory exam: Present: normal lung sounds bilaterally. Absent: respiratory distress, wheezes, rales, rhonchi, stridor Cardiovascular Exam: Present: regular rate, tachycardia, normal heart sounds. Absent: systolic murmur, diastolic murmur, rubs, gallop, clicks GI/Abdominal exam: Present: soft, normal bowel sounds. Absent: distended, tenderness, guarding, rebound, rigid Extremities exam: Present: normal inspection, full ROM, normal capillary refill. Absent: tenderness, pedal edema, joint swelling, calf tenderness Back exam: Present: normal inspection Neurological exam: Present: alert, oriented X3, CN II-XII intact Psychiatric exam: Present: normal affect, normal mood Skin exam: Present: warm, dry, intact, normal color. Absent: rash Course Vital Signs 07/08/22 07/09/22 23:02 00:07 Temperature 98.9 F Pulse Rate 113 H 105 H Respiratory 18 Rate Blood Pressure 126/70 O2 Sat by Pulse 94 L 95 Oximetry Medical Decision Making - Medical Decision Making I did discuss the findings with the patient's the patient is feeling improved at this time the presentation is consistent with sinusitis and bronchitis he will be placed on steroids and antibiotics he does have inhalers updrafts at home he will be given a work note. - Lab Data Result diagrams: 07/08/22 23:40 07/08/22 23:40 Lab Results 07/08/22 07/08/22 07/08/22 Range/Units 23:32 23:32 23:40 WBC 7.3 (3.8-10.6) k/uL RBC 5.20 (4.30-5.90) m/uL Hgb 15.2 (13.0-17.5) gm/dL Hct 42.9 (39.0-53.0) % MCV 82.5 (80.0-100.0) fL MCH 29.2 (25.0-35.0) pg MCHC 35.3 (31.0-37.0) g/dL RDW 14.0 (11.5-15.5) % Plt Count 145 L (150-450) k/uL MPV 8.1 Neutrophils % 84 % Lymphocytes % 8 % Monocytes % 4 % Eosinophils % 1 % Basophils % 1 % Neutrophils # 6.1 (1.3-7.7) k/uL Lymphocytes # 0.6 L (1.0-4.8) k/uL Monocytes # 0.3 (0-1.0) k/uL Eosinophils # 0.0 (0-0.7) k/uL Basophils # 0.0 (0-0.2) k/uL PT (9.0-12.0) sec INR (<1.2) APTT (22.0-30.0) sec D-Dimer (<0.60) mg/L FEU Sodium (137-145) mmol/L Potassium (3.5-5.1) mmol/L Chloride (98-107) mmol/L Carbon Dioxide (22-30) mmol/L Anion Gap mmol/L BUN (9-20) mg/dL Creatinine (0.66-1.25) mg/dL Est GFR (CKD-EPI)AfAm (>60 ml/min/1.73 sqM) Est GFR (CKD-EPI)NonAf (>60 ml/min/1.73 sqM) Glucose (74-99) mg/dL Plasma Lactic Acid Martín (0.7-2.0) mmol/L Calcium (8.4-10.2) mg/dL Magnesium (1.6-2.3) mg/dL Total Bilirubin (0.2-1.3) mg/dL AST (17-59) U/L ALT (4-49) U/L Alkaline Phosphatase (38-126) U/L Total Protein (6.3-8.2) g/dL Albumin (3.5-5.0) g/dL Coronavirus (PCR) Not Detected (Not Detectd) Influenza Type A RNA Not Detected (Not Detectd) Influenza Type B (PCR) Not Detected (Not Detectd) 07/08/22 07/08/22 07/08/22 Range/Units 23:40 23:40 23:40 WBC (3.8-10.6) k/uL RBC (4.30-5.90) m/uL Hgb (13.0-17.5) gm/dL Hct (39.0-53.0) % MCV (80.0-100.0) fL MCH (25.0-35.0) pg MCHC (31.0-37.0) g/dL RDW (11.5-15.5) % Plt Count (150-450) k/uL MPV Neutrophils % % Lymphocytes % % Monocytes % % Eosinophils % % Basophils % % Neutrophils # (1.3-7.7) k/uL Lymphocytes # (1.0-4.8) k/uL Monocytes # (0-1.0) k/uL Eosinophils # (0-0.7) k/uL Basophils # (0-0.2) k/uL PT 11.6 (9.0-12.0) sec INR 1.1 (<1.2) APTT 28.5 (22.0-30.0) sec D-Dimer 0.58 (<0.60) mg/L FEU Sodium 137 (137-145) mmol/L Potassium 3.8 (3.5-5.1) mmol/L Chloride 105 (98-107) mmol/L Carbon Dioxide 24 (22-30) mmol/L Anion Gap 8 mmol/L BUN 19 (9-20) mg/dL Creatinine 0.98 (0.66-1.25) mg/dL Est GFR (CKD-EPI)AfAm >90 (>60 ml/min/1.73 sqM) Est GFR (CKD-EPI)NonAf >90 (>60 ml/min/1.73 sqM) Glucose 116 H (74-99) mg/dL Plasma Lactic Acid Martín 1.5 (0.7-2.0) mmol/L Calcium 9.4 (8.4-10.2) mg/dL Magnesium 2.0 (1.6-2.3) mg/dL Total Bilirubin 1.1 (0.2-1.3) mg/dL AST 37 (17-59) U/L ALT 36 (4-49) U/L Alkaline Phosphatase 102 (38-126) U/L Total Protein 7.3 (6.3-8.2) g/dL Albumin 4.7 (3.5-5.0) g/dL Coronavirus (PCR) (Not Detectd) Influenza Type A RNA (Not Detectd) Influenza Type B (PCR) (Not Detectd) - EKG Data -: EKG Interpreted by Me EKG shows normal: sinus rhythm EKG Comments: Tachycardia EKG read by me ventricular rate 100 VA interval 148 QRS duration 106 QT since QTC 326/383 nonspecific inferior configuration, question previous inferior event. - Radiology Data Radiology results: image reviewed (I did interpret the imaging no evidence of acute infiltrates or findings) Disposition Clinical Impression: Sinusitis, Asthmatic bronchitis Disposition: HOME SELF-CARE Condition: Good Instructions (If sedation given, give patient instructions): Upper Respiratory Infection (ED), Bronchospasm (ED), Acute Bronchitis (ED) Prescriptions: Amoxic-Pot Clav 875-125Mg [Augmentin 875-125] 1 tab PO Q12HR 1 Days #20 tab methylPREDNISolone Dose Pack [Medrol Dose Pack] 4 mg PO DIRECTED #21 tab Budesonide [Pulmicort] 1 mg INHALATION BID #60 ml Is patient prescribed a controlled substance at d/c from ED?: No Referrals: Rakan Harkins MD [Primary Care Provider] - 1-2 days Decision Date: 07/09/22 Decision Time: 00:45
[2022-07-09 00:14] LABS: Basophils % (A) 1 %; Eosinophils % (A) 1 %; HCT 42.9 % (39.0-53.0); HGB 15.2 gm/dL (13.0-17.5); Lymphocytes # (A) 0.6 k/uL (1.0-4.8); Lymphocytes % (A) 8 %; MCH 29.2 pg (25.0-35.0); MCHC 35.3 g/dL (31.0-37.0); MCV 82.5 fL (80.0-100.0); Mean Platelet Volume 8.1; Monocytes # (A) 0.3 k/uL (0-1.0); Monocytes % (A) 4 %; Neutrophils # (A) 6.1 k/uL (1.3-7.7); Neutrophils % (A) 84 %; Platelet Count 145 k/uL (150-450); WBC 7.3 k/uL (3.8-10.6)
--- NOTE | 2022-07-09 00:20 | XR ---
EXAMINATION TYPE: XR chest 2V DATE OF EXAM: 07/09/2022 COMPARISON: 12/08/2020 HISTORY: Short of breath TECHNIQUE: FINDINGS: There is no heart failure nor confluent pneumonic infiltrate. There are sternal wires. Cost ophrenic angles are clear. No pleural effusion. Bony thorax is intact. IMPRESSION: No active cardiopulmonary disease. No change.
[2022-07-09 00:24] LABS: INR 1.1 (<1.2); Partial Thromboplastin Time 28.5 sec (22.0-30.0); Prothrombin Time 11.6 sec (9.0-12.0)
[2022-07-09 00:30] LABS: ALT 36 U/L (4-49); AST 37 U/L (17-59); African American GFR (CKD) >90 (>60 ml/min/1.73 sqM); Albumin 4.7 g/dL (3.5-5.0); Alkaline Phosphatase 102 U/L (38-126); Anion Gap 8 mmol/L; Blood Urea Nitrogen 19 mg/dL (9-20); Calcium 9.4 mg/dL (8.4-10.2); Carbon Dioxide 24 mmol/L (22-30); Chloride 105 mmol/L (98-107); Glucose 116 mg/dL (74-99); Non-African American GFR(CKD) >90 (>60 ml/min/1.73 sqM); Potassium 3.8 mmol/L (3.5-5.1); Sodium 137 mmol/L (137-145); Total Bilirubin 1.1 mg/dL (0.2-1.3); Total Protein 7.3 g/dL (6.3-8.2)
[2022-07-09] MEDS ORDERED: AMOXIC-POT CLAV 875-125MG 1 EACH TAB PO STA (00:40)
[2022-07-09 01:18] VITALS: BP 112/60; PULSE 104; TEMP 98
== END 2022-07-09 01:24 | disposition home or self-care (01) ==
LOC: EC 23:00
DX: J45.909 Unspecified asthma, uncomplicated (principal); J32.9 Chronic sinusitis, unspecified; I10 Essential (primary) hypertension; Z20.822 Contact with and (suspected) exposure to COVID-19; Z87.891 Personal history of nicotine dependence; Z79.01 Long term (current) use of anticoagulants
CPT/HCPCS: 36415; 94640; 93005; 85379; 83880; 80053; 83605; 83735; 84484; 85025; 85610; 85730; 87040; 87502; 87635; 71046; 99285; 96374; 96361; J2930